=== PATIENT | male | born 1990 | race African-American/Black ===

== ENCOUNTER 2017-05-17 07:17 | Emergency (ER) | payer OTHER ==
[~2017-05-17] VITALS: Ht 167.6 cm; Wt 75.0 kg
[2017-05-17 08:00] VITALS: BP 151/80
== END 2017-05-17 08:12 | disposition home or self-care (01) ==
LOC: ER 07:34
DX: F41.9 Anxiety disorder, unspecified (principal); R00.2 Palpitations
CPT/HCPCS: 99284; Z7610

== ENCOUNTER 2019-11-22 19:23 | Emergency (ER) | payer OTHER ==
[~2019-11-22] VITALS: Ht 177.8 cm; Wt 81.0 kg
[2019-11-23 00:42] LABS: BASOPHILS % 0.8 % (0.0-2.0); EOSINOPHILS % 1.9 % (0.0-5.0); HEMATOCRIT. 42.7 % (42.0-52.0); HEMOGLOBIN. 14.3 g/dL (14.0-18.0); LYMPHOCYTES % 30.3 % (20.0-50.0); MEAN CORPUSCULAR HEMOGLOBIN 25.8 pg (28.0-32.0); MONOCYTES % 7.9 % (2.0-8.0); NEUTROPHILS % 59.1 % (40.0-76.0); RED BLOOD CELL COUNT 5.54 mill/uL (4.7-6.1); RED CELL DISTRIBUTION WIDTH 13.1 % (11.6-14.6)
[2019-11-23 00:54] LABS: ETHANOL BLOOD < 10 mg/dL
[2019-11-23 01:24] LABS: MEAN PLATELET VOLUME 8.9 fl (7.4-10.4); PLATELET 264 x1000/uL (130-400)
[2019-11-23 01:41] LABS: CHLORIDE 104 mEq/L (98-107)
[2019-11-23 01:44] LABS: *BENZODIAZEPINES SCREEN URINE NEGATIVE (NEGATIVE); *COCAINE SCREEN URINE NEGATIVE (NEGATIVE)
[2019-11-23 01:45] LABS: *AMPHETAMINES SCREEN URINE NEGATIVE (NEGATIVE); *BARBITURATES SCREEN URINE NEGATIVE (NEGATIVE); CANNABINOID URINE SCREEN NEGATIVE (NEGATIVE); METHADONE URINE SCREEN NEGATIVE (NEGATIVE); OPIATES URINE SCREEN NEGATIVE (NEGATIVE); PHENCYCLIDINE URINE SCREEN NEGATIVE (NEGATIVE)
[2019-11-23 03:08] VITALS: BP 140/81
== END 2019-11-23 03:23 | disposition home or self-care (01) ==
LOC: ER 19:23
DX: R00.2 Palpitations (principal); E11.9 Type 2 diabetes mellitus without complications; R51 Headache; R07.9 Chest pain, unspecified; D64.9 Anemia, unspecified
CPT/HCPCS: 36415; 71045; 80053; 80305; 80320; 82962; 84484; 85025; 93005; 99284; G0480

== ENCOUNTER 2020-09-02 13:56 | Emergency (ER) | payer MEDICAID, OTHER ==
[~2020-09-02] VITALS: Ht 170.2 cm; Wt 81.0 kg
[2020-09-02 14:10] VITALS: BP 139/79
== END 2020-09-02 17:33 | disposition left against medical advice (07) ==
LOC: ER 14:03
DX: R51.9 Headache, unspecified (principal); R55 Syncope and collapse; E11.9 Type 2 diabetes mellitus without complications; Z98.890 Other specified postprocedural states; Z53.21 Procedure and treatment not carried out due to patient leaving prior to being seen by health care provider
CPT/HCPCS: 93005